=== PATIENT | female | born 1975 | race African-American/Black ===

== ENCOUNTER 2022-08-16 08:40 | Outpatient (CLI) | payer BC, SELFPAY | END 2022-08-16 08:41 | disposition home or self-care (01) | LOC: OP CLINIC 08:42 | PROVIDERS: PCP Emergency Medicine; Visit Provider Internal Medicine | DX: Z12.11 Encounter for screening for malignant neoplasm of colon (principal); K57.30 Diverticulosis of large intestine without perforation or abscess without bleeding | CPT/HCPCS: 45378; J2250; J3010 ==